=== PATIENT | male | born 1990 | race Caucasian/White ===

== ENCOUNTER 2020-07-27 10:58 | Outpatient (CLI) | payer OTHER, SELFPAY ==
[2020-07-27 11:12] LABS: Hematocrit 38.5 % (40.0-54.0); Hemoglobin 13.2 g/dL (14.0-18.0); Mean Corpuscular HGB Conc 34.3 g/dL (32.0-36.0); Mean Corpuscular Hemoglobin 30.7 pg (27.0-31.0); Mean Corpuscular Volume 89.5 fL (78.0-102.0); Mean Platelet Volume 9.2 fl (8.7-11.0); Platelet Count Result 153 K/mm3 (150-420); White Blood Count 4.2 K/mm3 (4.8-10.8)
[2020-07-27 11:29] LABS: Alanine Aminotransferase 16 U/L (16-63); Alkaline Phosphatase 79 U/L (46-116); Anion Gap 11 mmol/L (8-16); Aspartate Amino Transferase 11 U/L (15-37); Bilirubin,Total 0.7 mg/dL (0.00-1.00); Blood Urea Nitrogen 17 mg/dL (7-18); Calcium 8.9 mg/dL (8.5-10.1); Carbon Dioxide 27 mmol/L (21-32); Chloride 102 mmol/L (98-108); Estimated Glomerular Filt Rate > 60; Glucose 102 mg/dL (70-99); Osmolality Calculated 291 mOsm/kg (285-295); Potassium 3.5 mmol/L (3.5-5.1); Sodium 140 mmol/L (136-145); Total Protein 7.7 g/dL (6.4-8.2)
[2020-07-27 11:32] LABS: Lactic Acid 0.5 mmol/L (0.4-2.0)
[2020-07-27 12:01] LABS: Band Neutrophils Percent 0 % (0-6); Lymphocytes Absolute Manual 0.71 K/mm3 (1.1-4.5); Lymphocytes Percent Manual 17 % (18-44); Monocytes Absolute Manual 0.84 K/mm3 (0.1-0.90); Monocytes Percent Manual 20 % (3-9); Neutrophils Absolute Manual 2.64 K/mm3 (1.3-6.7); Neutrophils Percent Manual 63 % (46-73); Platelet Estimate Adequate (Adequate); Total Cells Counted 100
[2020-07-29 09:36] LABS: Ferritin 114 ng/mL (26-388); Iron 79 ug/dL (65-175); Percent Iron Saturation 28 % (12-57)
== END 2020-07-27 10:59 | disposition home or self-care (01) ==
LOC: CHSLAB 11:04
PROVIDERS: PCP Internal Medicine; Visit Provider Internal Medicine
DX: R78.81 Bacteremia (principal); D64.9 Anemia, unspecified
CPT/HCPCS: 36415; 80053; 82728; 83540; 83550; 83605; 85025

== ENCOUNTER 2020-12-28 08:47 | Outpatient (CLI) | payer OTHER, SELFPAY ==
--- NOTE | ~2020-12-28 | US_ITS ---
EXAMINATION: US soft tissue head and neck DATE: 12/28/2020 09:06 INDICATION: Left-sided cervical lymph node enlargement. TECHNIQUE: Multiple grayscale and Doppler ultrasound images of the neck were obtained. COMPARISON: None FINDINGS: There are enlarged internal jugular chain lymph nodes in the patient's area of concern in l eft neck. The largest and measures 1.8 x 1.7 x 1.3 cm. IMPRESSION: 1. Enlarged left internal jugular chain lymph nodes, which may be reactive or less likely malignant. Neck CT with contrast is recommended if there is no clinical improvement. Reviewed, dictated and finalized at location A. IMPRESSION: 1. Enlarged left internal jugular chain lymph nodes, which may be reactive or l ess likely malignant. Neck CT with contrast is recommended if there is no clini chandan improvement.
== END 2020-12-28 08:48 | disposition home or self-care (01) ==
LOC: CHSIMG 08:47
PROVIDERS: PCP Internal Medicine; Visit Provider Internal Medicine
DX: R59.9 Enlarged lymph nodes, unspecified (principal)
CPT/HCPCS: 76536

== ENCOUNTER 2020-12-30 08:06 | Outpatient (CLI) | payer OTHER, SELFPAY ==
--- NOTE | ~2020-12-30 | CT_ITS ---
EXAMINATION: CT soft tissue neck w con DATE: 12/30/2020 08:33 INDICATION: Left-sided cervical lymph node enlargement. TECHNIQUE: Computed tomography (CT) of the neck was performed with 75 mL Omnipaque-350 intravenous co ntrast. Automated exposure control and iterative reconstruction technique were employed. The dose-hamilton gth product was 417.54 mGy-cm. COMPARISON: Ultrasound 12/28/2020 FINDINGS: There is an 8.5 x 3.7 cm mass in the anterior mediastinum that is contiguous with left supr aclavicular lymphadenopathy. A left supraclavicular node measures 2.2 x 1.3 cm. There is a skin marke r overlying this node. The cervical carotid arteries are normal. There is mild cervical spondylosis. Cervicothoracic dextroscoliosis is noted. IMPRESSION: 1. Anterior mediastinal mass and left supraclavicular lymphadenopathy, most likely lymphoma. Ultrasou nd-guided core needle biopsy of a left subclavicular lymph node is recommended. I called this result to Dr. Hodges. Reviewed, dictated and finalized at location A. IMPRESSION: 1. Anterior mediastinal mass and left supraclavicular lymphadenopathy, most lik arely lymphoma. Ultrasound-guided core needle biopsy of a left subclavicular lymp h node is recommended. I called this result to Dr. Hodges.
== END 2020-12-30 08:07 | disposition home or self-care (01) ==
LOC: CHSIMG 08:07
PROVIDERS: PCP Internal Medicine; Visit Provider Internal Medicine
DX: R59.0 Localized enlarged lymph nodes (principal)
CPT/HCPCS: 70491; Q9967

== ENCOUNTER 2023-01-20 05:09 | Inpatient (IN) | payer OTHER, SELFPAY ==
[2023-01-20] VITALS (91 sets, daily range): BP systolic 94–134; BP diastolic 59–92; PULSE 67–121; RESP 16–18; TEMP 36.6–37.3; O2SAT 94–100; BMI 32.7
[2023-01-20] MEDS: LACTATED RINGERS 1,000 ML 125 ML IV CONT (05:54)
[2023-01-20] MEDS: AMPICILLIN 2 GM/NS 100 ML 2 GM/100 ML BAG IVPB (05:55)
[2023-01-20 06:06] LABS: Basophils Percent Auto 0.4 % (0.2-1.2); Eosinophils Absolute Auto 0.1 K/mm3 (0-0.3); Eosinophils Percent Auto 0.8 % (0-4.4); Hematocrit 37.9 % (37.0-47.0); Hemoglobin 11.9 g/dL (12.0-15.0); Immature Granulocyte Absolute 0.06 K/mm3 (0.00-0.031); Immature Granulocyte Percent A 0.6 % (0-0.5); Lymphocytes Absolute Auto 1.15 K/mm3 (0.9-3.2); Mean Corpuscular HGB Conc 31.4 g/dl (32-36); Mean Corpuscular Volume 89.2 fl (80-100); Mean Platelet Volume 11.3 fl (7.4-10.4); Monocytes Absolute Auto 0.6 K/mm3 (0.1-0.6); Monocytes Percent Auto 5.7 % (2.6-8.5); Neutrophils Absolute Auto 8.5 K/mm3 (1.3-6.7); Neutrophils Percent Auto 81.5 % (45.5-73.1); Platelet Count Result 200 k/mm3 (150-375); Red Blood Count 4.25 M/mm3 (4.2-5.4); Red Cell Distribution Width 14.1 % (11.5-14.5); White Blood Count 10.4 K/mm3 (4.5-10.0)
--- NOTE | 2023-01-20 06:13 | LDADM ---
This patient, Nicci Ibarra, was admitted to Labor/Delivery/Recovery 106 on 01/20/23 at 05:09. Plans for labor, pain management and were discussed with patient. Patient/family oriented to hospital policies and general routines including ID bracelet, bed and alarms, visiting hours, pain management, procedures, bathroom and other care routines, personal items, smoking policy, room service/diet and guest tray routines, infant security routines, and visiting hours. Patient/Family are encouraged to report perceived risks to care and to ask questions if they do not understand what they are told or what they should do. See OBIX for further documentation.
[2023-01-20] MEDS: OXYTOCIN 30 UNITS/NS 500 ML 30 UNITS/500 ML BAG 6 UNITS IV CONT (06:52)
--- NOTE | 2023-01-20 09:13 | PM.IMHP ---
H&P: HPI History of Present Illness Date/Time: 01/20/23 09:13 Chief Complaint: Induction of labor Narrative: Nicci is a 32yo @ 40.2wks who presents for induction of labor. She has had regular care. She reports good movement. No VB or LOF. Her is complicated by: - SMA 1 copy; FOB 2 copies - h/o stage 3 Hodgkin's lymphoma - GBS positive Review of Systems Constitutional: Constitutional: Denies chills, Denies fever(s) and Denies headache(s) Eyes: Eyes: Denies change in vision ENT: Denies headache(s) Cardiovascular: Cardiovascular: Denies chest pain and Denies dyspnea Respiratory: Respiratory: Denies dyspnea Genitourinary: Genitourinary: Denies abnormal vaginal bleeding and Denies vaginal discharge Neurologic: Denies headache(s) Psychiatric: Psychiatric: Denies anxiety and Denies depression PMFSH Past Medical History Medical History Lymphoma hodgkins; stage 3, s/p chemo Suppression of menses Surgical History Surgical History H/O gynecological procedure egg retrieval [place] teeth removed Family History Family History Grandparent Heart disease Hypertension Father Hypertension Social History Social History Smoking status: Never smoker Alcohol intake: never Substance use: never Substance use type: does not use Lack of Transportation: No Lack of Food: Never True Current Housing: I Have Housing Concerned About Future Housing: No Difficulty Paying Gas/Electric Bills: No Difficulty Paying for Meds: No Currently Unemployed: No Education: Master's Degree or Higher Difficulty w/ Childcare or Family Care: No Living arrangements: with family Occupation/Education: occupation 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 [employer] Gender identity (if verbalized by the patient): Female Sexual Orientation (if Verbalized by the Patient): Straight or Heterosexual Spiritual care concerns: No Meds Home Medications and Allergies Home Medications Medication Instructions Recorded Confirmed Type ferrous sulfate 325 mg (65 mg 325 mg PO DAILY 12/21/22 01/20/23 History iron) tablet prenat.vits,chandan,vok-pbba-ffhxl 1 tablet PO DAILY 12/21/22 01/20/23 History Allergies Allergy/AdvReac Type Severity Reaction Status Date / Time No Known Allergies Allergy Verified 01/20/23 06:22 Vital Signs Vital Signs - 24 hr 01/20/23 05:34 01/20/23 05:46 01/20/23 06:01 Temperature Pulse Rate 96 89 98 Blood Pressure 134/92 H 122/81 114/80 Oxygen Delivery 01/20/23 06:16 01/20/23 06:31 01/20/23 06:46 Temperature Pulse Rate 89 89 92 Blood Pressure 116/82 120/81 109/82 Oxygen Delivery 01/20/23 06:45 01/20/23 07:01 01/20/23 07:16 Temperature 98 F Pulse Rate 85 86 Blood Pressure 109/74 112/77 Oxygen Delivery 01/20/23 07:31 01/20/23 07:46 01/20/23 08:01 Temperature Pulse Rate 89 90 Blood Pressure 100/76 105/78 108/81 Oxygen Delivery 01/20/23 08:16 01/20/23 08:31 01/20/23 09:01 Temperature Pulse Rate 76 74 95 Blood Pressure 114/81 114/70 119/83 Oxygen Delivery 01/20/23 06:13 Temperature Pulse Rate Blood Pressure Oxygen Delivery Room Air Exam Const: General: cooperative, comfortable, no acute distress and obese Nutritional Appearance: obese Orientation/consciousness: patient oriented x3 Resp: Effort & Inspection: normal respiratory effort Cardio: Rate: regular rate GI: GI Palp: No abdominal tenderness : Other: FHT's: 150's/ mod claire/ + accels/ no decels - cat 1 TOCO: ctxs q3min Cervix: 5/80/-1 Membranes: AROM, clear 0955 Presentation: cephalic Skin: General skin exam: normal color Neuro: General: patient oriented x3 Extrem: G
[2023-01-20] MEDS: AMPICILLIN 1 GM/NS 50 ML 1 GM/50 ML BAG IVPB (09:40)
--- NOTE | 2023-01-20 09:58 | WPDHPUPDATE1 ---
History and Physical Update Update Date/Time: 01/20/23 09:58 History and Physical has been reviewed, including an updated exam of the patient. There are NO changes in the patient's condition. Risks, benefits, and alternatives have been discussed and questions answered. Patient agrees to proceed with procedure.
[2023-01-20] MEDS: ONDANSETRON INJ 4 MG/2 ML VIAL IV PUSH (10:43)
--- NOTE | 2023-01-20 11:06 | WPDANESEPP ---
Anes - Eval Pre Procedure Procedure: labor epidural Date/Time: 01/20/23 11:06 Surgeon: santiago Preop Diagnosis: Pain during labor Pre Op Diagnosis: Induction of Labor Patient Data Age: 32 Gender: F Height: 1.68 m Weight: 92 kg Last Vital Signs Temp 36.6 C 01/20/23 10:40 Pulse 83 01/20/23 11:01 BP 115/72 01/20/23 11:01 Pulse Ox 99 01/20/23 11:03 O2 Del Method Room Air 01/20/23 06:13 Allergies Allergy/AdvReac Type Severity Reaction Status Date / Time No Known Allergies Allergy Verified 01/20/23 06:22 Home Medications Medication Instructions Recorded Confirmed Type ferrous sulfate 325 mg (65 mg 325 mg PO DAILY 12/21/22 01/20/23 History iron) tablet prenat.vits,cahndan,nob-xzvc-droep 1 tablet PO DAILY 12/21/22 01/20/23 History Laboratory Tests 01/20/23 05:42 WBC 10.4 H K/mm3 (4.5-10.0) RBC 4.25 M/mm3 (4.2-5.4) Hgb 11.9 L g/dL (12.0-15.0) Hct 37.9 % (37.0-47.0) MCV 89.2 fl (80-100) MCH 28.0 pg (26-34) MCHC 31.4 L g/dl (32-36) RDW 14.1 % (11.5-14.5) Plt Count 200 k/mm3 (150-375) MPV 11.3 H fl (7.4-10.4) Immature Gran % (Auto) 0.6 H % (0-0.5) Neut % (Auto) 81.5 H % (45.5-73.1) Lymph % (Auto) 11.0 L % (18.3-44.2) [place] % (Auto) 5.7 % (2.6-8.5) Eos % (Auto) 0.8 % (0-4.4) Baso % (Auto) 0.4 % (0.2-1.2) Lymph # (Auto) 1.15 K/mm3 (0.9-3.2) [place] # (Auto) 0.6 K/mm3 (0.1-0.6) Eos # (Auto) 0.1 K/mm3 (0-0.3) Baso # (Auto) 0.0 K/mm3 (0.0-0.1) Abs Immat Gran (auto) 0.06 H K/mm3 (0.00-0.031) Absolute Neuts (auto) 8.5 H K/mm3 (1.3-6.7) Absolute Nucleated RBC 0.0 K/mm3 (0.0-0.012) Nucleated RBC % 0.0 % (0.0-0.2) RPR Pending Blood Type B Positive Antibody Screen Negative Patient hx anesthesia problems: none Family hx anesthesia problems: none Results Review: All pre-operative results and documents have been reviewed as part of the pre-operative evaluation. [facility] Past Medical History Medical History Lymphoma hodgkins; stage 3, s/p chemo Suppression of menses Surgical History Surgical History H/O gynecological procedure egg retrieval [place] teeth removed Family History Family History Grandparent Heart disease Hypertension Father Hypertension Social History Social History Smoking status: Never smoker Alcohol intake: never Substance use: never Substance use type: does not use Lack of Transportation: No Lack of Food: Never True Current Housing: I Have Housing Concerned About Future Housing: No Difficulty Paying Gas/Electric Bills: No Difficulty Paying for Meds: No Currently Unemployed: No Education: Master's Degree or Higher Difficulty w/ Childcare or Family Care: No Living arrangements: with family Occupation/Education: occupation 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
[2023-01-20] MEDS: OXYTOCIN 30 UNITS/NS 500 ML 30 UNITS/500 ML BAG 125 UNITS IV CONT (14:30)
--- NOTE | 2023-01-20 14:30 | PM.OBPRVD ---
OB - Vaginal Delivery Note Procedure Delivery date: 01/20/23 Events: Elective Induction of Labor and Positive Group B Strep (GBS) Induction method: Per Pitocin Protocol Delivery augmentation: Rupture of Membranes Delivery monitor: External FHT and External Uterine Route of delivery: Laceration Description: Perineal - 3rd Degree and Labial (right) Delivery repair: vicryl Specimen: No Quantitative Blood Loss (ml): 700 Anesthesia type: Epidural Disposition: Floor Complications: No immediate complications Baby Date of : 01/20/23 Time of : 13:49 Weeks of gestation at delivery: 40 (.2) Infant gender: Female Weight (pounds): 9 Weight (ounces): 10 presentation: vertex Placenta delivery description: Expressed Cord Vessel Description: 3 Vessels and Delayed Cord Clamping score one minute: 8 score five minutes: 9 Narrative: Nicci progressed to complete dilation. She pushed for approximately 10 minutes with good maternal effort. She delivered the head over intact perineum. No nuchal cord was palpated. She easily delivered the 's shoulders and body without complication. Meconium stained fluid as well as terminal meconium was noted. The was immediately placed skin to skin and had spontaneous cry. Delayed cord clamping was performed. The umbilical cord was then doubly clamped and cut. A segment of the cord was collected for cord gases. The remaining cord blood was collected for typing. With Pitocin running and gentle downward traction on the cord, the placenta delivered without complications. Brisk bleeding was noted from the right labial laceration as well as the partial third-degree perineal laceration. The labial laceration was repaired to the normal, interlocking fashion using 2-0 Vicryl and good hemostasis was noted. A briskly bleeding blood vessel near the perineal laceration was then suture ligated using 2-0 Vicryl in a mvlkxs-gx-kvmhq manner and good hemostasis was noted. The rectal sphincter was reinforced using multiple 2-0 Vicryl stitches and good reapproximation was noted on rectal exam. The remaining portion of the perineal laceration was repaired in the normal fashion using 2-0 Vicryl. Bimanual massage was performed and good uterine tone with minimal bleeding was noted. Sponge, lap, instrument, and needle counts were correct at the end of the procedure. An additional rectal exam was performed and palpated normal. Mom and baby were left bonding in the birthing suite in stable condition. [facility] Delivery Billing Delivery Delivery: Delivery Charge
[2023-01-20] MEDS: ceFAZolin 2 GM/D5W 50 ML 2 GM/50 ML BAG IVPB (14:46)
--- NOTE | 2023-01-20 16:29 | OBPPTRN ---
0247-Patient transferred to post room #282 via wheelchair. Support person present. Oriented to unit, room, information board, rooming in, admission packet and security measures. Patient verbalizes understanding.
[2023-01-20] MEDS: IBUPROFEN 600 MG TABLET PO (19:10)
[2023-01-20] MEDS: DOCUSATE SODIUM 100 MG CAPSULE PO (21:05)
[2023-01-20] MEDS: ACETAMINOPHEN 325 MG TABLET 650 MG PO (21:05)
[2023-01-21] MEDS: IBUPROFEN 600 MG TABLET PO ×3 (03:08→15:21)
[2023-01-21] MEDS: ACETAMINOPHEN 325 MG TABLET 650 MG PO ×2 (03:08→16:38)
[2023-01-21 04:53] LABS: Hematocrit 28.8 % (37.0-47.0); Hemoglobin 9.1 g/dL (12.0-15.0)
--- NOTE | 2023-01-21 07:32 | PM.OBPNVD ---
OB - PN: Subj Subjective Date/time seen: 01/21/23 07:32 Narrative: PPD#1 Nicci reports doing well today. 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 Her pain is controlled with PO pain meds. She is tolerating regular diet, voiding, passing gas, and ambulating without issues. She is breast feeding. OB - PN: Obj Data Labs 01/21/23 04:22 Labs: Laboratory Results - last 24 hr 01/21/23 04:22 Hgb 9.1 L Hct 28.8 L OB - PN A/P Assessment and Plan (1) Normal vaginal delivery of first : Code(s): O80 - Encounter for full-term uncomplicated delivery Status: Acute (2) Third degree perineal laceration during delivery: Qualifiers: Third degree perineal laceration subtype: type 3a Qualified Code(s): O70.21 - Third degree perineal laceration during delivery, IIIa Code(s): O70.20 - Third degree perineal laceration during delivery, unspecified Status: Acute Plan day: 1 Plan: routine care Comments: - continue colace, miralax, s/p ancef 2g once - continue PO pain meds - ambulation/hydration - continue Time Spent With Patient Time: Total time spent is greater than 50% in coordination of care (as documented) at patient's floor/unit and/or counseling patient: Review of Systems Constitutional: Constitutional: Denies chills, Denies fever(s) and Denies headache(s) Eyes: Eyes: Denies change in vision ENT: Denies dizziness and Denies headache(s) Cardiovascular: Cardiovascular: Denies chest pain, Denies palpitations and Denies dyspnea Respiratory: Respiratory: Denies cough and Denies dyspnea Gastrointestinal: Gastrointestinal: Denies nausea and Denies vomiting Neurologic: Denies dizziness and Denies headache(s) Endocrine: Endocrine: Denies palpitations Exam Const: General: cooperative, comfortable and no acute distress Orientation/consciousness: patient oriented x3 Resp: Effort & Inspection: normal respiratory effort Auscultation: clear to auscultation bilaterally Cardio: Rate: regular rate GI: Inspection: non-distended GI Palp: No abdominal tenderness and Yes Soft to palpation Auscultation: normal bowel sounds : Other: fundus firm Skin: General skin exam: normal color Neuro: General: patient oriented x3 Extrem: General: normal to inspection Psych: Appearance: grossly normal Affect: normal affect Attitude: cooperative
--- NOTE | 2023-01-21 07:40 | WPDANLDPN2 ---
Anes-Prog Note L&D Date/Time: 01/21/23 07:40 Comfortable throughout: labor and delivery Neuraxial method: epidural Epidural/Spinal procedure site: clean & non-tender Neuro status: Neuro function grossly intact. Cardiovascular status: normal Respiratory status: normal Airway patency: baseline Mental status: baseline Post-Op hydration status: normal Vital Signs: Last Vital Signs Temp 36.7 C 01/20/23 22:45 Pulse 85 01/20/23 22:45 Resp 18 01/20/23 22:45 BP 121/86 01/20/23 22:45 Pulse Ox 99 01/20/23 22:45 O2 Del Method Room Air 01/20/23 22:45 Pain score (VAS): 2/10 I/O: Intake & Output 01/20/23 01/20/23 01/21/23 15:59 23:59 07:59 Intake Total 500 Output Total 700 21 Balance -700 479 Post-procedural complaints: none Patient feedback: Patient satisfied with anesthetic care.
[2023-01-21 07:45] VITALS: BP 110/76; PULSE 79; RESP 18; TEMP 36.8; O2SAT 99
[2023-01-21] MEDS: polyethylene glycoL 3350 17 GM POWD.PACK PO (09:11)
[2023-01-21] MEDS: MULTIVIT/MIN/PREN/FOL AC/IRON TABLET 1 TAB PO (09:11)
[2023-01-21] MEDS: DOCUSATE SODIUM 100 MG CAPSULE PO ×2 (09:11→15:22)
[2023-01-21] MEDS: POLYSACCHARIDE IRON COMPLEX 150 MG CAPSULE PO ×2 (09:11→15:22)
[2023-01-21 12:03] VITALS: BP 99/67; PULSE 75; RESP 16; TEMP 37.4; O2SAT 98
--- NOTE | 2023-01-21 13:20 | PC.NURSE ---
[id number] Introductions were made, then consulted with patient to assess needs related to . Mother led the conversation with her?plans to feed?her infant, the?experience so far and injuries to bilateral nipples were made visible and discussed from earlier sessions. Mother works well with her with encouragement, education and we reviewed the wonderful output that demonstrates may be going better than mother thinks. Encouraged understanding of the benefits of skin to skin (demonstrating unwrapping infant and placing upright on her chest), stimulating with massage touch, changing positions to encourage wakefulness, how to watch for early feeding cues, responsive feeding, feeding on demand (aiming for 8-12 times in 24 hours, about every 2-3 hours), milk production, building/maintaining a milk supply, duration of feeding, signs of adequate intake/output and how to record on the feeding sheet. Reviewed positioning and ear, shoulder, hip alignment, supporting the breast to facilitate a deep latch, asymmetrical latch (off-center), leading with the chin with a big, open, wide gape and body close to mother. latched optimally to the right breast in football position. Education given to mother of how to visualize suck/swallow ratios and listen for drinking at the breast which infant demonstrates well. was able to maintain latch without discomfort to mother. Nipple care reviewed with optimal latch and good positioning. Reminding mother of comfort measures of healing with a warm and wet washcloth to rinse breast, then leave open to air-dry as needed. Reviewed good handwashing when or touching the breast/nipples to prevent infection. Resources used to facilitate learning were used with the visual handouts, tool, mom and baby guide. Mother voiced understanding of skin to skin, stimulating with massage touch, responsive feedings, talking to to encourage if it has been 2 -2.5 hours since the start of the last , feeding on demand, to call if does not latch, or if there is discomfort with . Resources provided for inpatient/outpatient with feeding sheet, name written on the communication board and the mom/baby guide. Parents voiced understanding of information, demonstrated learning and will call if there is a request for assistance. Reported to the Primary RN.
[2023-01-21 13:35] LABS: Rapid Plasma Reagin Non-Reactive (NonReactive)
[2023-01-21 19:36] VITALS: BP 101/69; PULSE 81; RESP 18; TEMP 36.4; O2SAT 99
--- NOTE | 2023-01-22 07:18 | PM.OBDSVD ---
DS: Admitting Diagnosis Discharge Date 01/22/23 Admitting Diagnosis Induction of labor DS: Discharge Diagnosis Discharge Diagnosis (1) Normal vaginal delivery of first : Code(s): O80 - Encounter for full-term uncomplicated delivery Status: Acute (2) Third degree perineal laceration during delivery: Qualifiers: Third degree perineal laceration subtype: type 3a Qualified Code(s): O70.21 - Third degree perineal laceration during delivery, IIIa Code(s): O70.20 - Third degree perineal laceration during delivery, unspecified Status: Acute OB - DS: Summary OB Procedures : Ultrasound OB Procedures Intrapartum: Spontaneous Vag Delivery OB Procedures: : Antibiotics Peripartum Data Infant Delivery Method: Natural Vaginal Laceration Description: Perineal - 3rd Degree and Labial (right) complications: none 1: Gender: Female Disposition of : home Status at Discharge Functional status at discharge: independent ambulation Overall status at discharge: patient is back to baseline Time Spent with Patient Time attestation: Total time spent providing and/or coordinating discharge services: Time spent: Less than 30 minutes Exam Const: General: cooperative, comfortable and no acute distress Orientation/consciousness: patient oriented x3 Resp: Effort & Inspection: normal respiratory effort Auscultation: clear to auscultation bilaterally Cardio: Rate: regular rate GI: Inspection: non-distended GI Palp: No abdominal tenderness and Yes Soft to palpation Auscultation: normal bowel sounds : Other: fundus firm Skin: General skin exam: normal color Neuro: General: patient oriented x3 Extrem: General: normal to inspection Psych: Appearance: grossly normal Affect: normal affect Attitude: cooperative DS: Data Data Completed and Pending Labs on day of discharge: Labs from last 24 hours 01/20/23 05:42 RPR Non-reactive Discharge Plan Discharge Attending physician on discharge: Evelyn Gottlieb Discharging Clinician: Evelyn Gottlieb Anticipated Discharge Date/Time: 01/22/23 08:00 Patient Disposition: Home, Self-Care Activity: may shower and pelvic rest Diet: regular Patient Instructions: Antibiotic Form Stand Alone Forms: General Discharge Information Follow-up/Referrals: Evelyn Gottlieb MD [Physician] - 4 Weeks Discharge Medications: New docusate sodium 100 mg Capsule 100 mg PO BID PRN (Reason: Constipation) Qty: 120 1RF polyethylene glycol 3350 [Miralax] 17 gram Powder In Packet 17 g PO QAM Qty: 30 1RF ibuprofen 600 mg Tablet 600 mg PO Q6H PRN (Reason: Cramping) Qty: 40 0RF acetaminophen 500 mg tablet 1,000 mg PO Q6H Qty: 80 0RF Continued ferrous sulfate 325 mg (65 mg iron) Tablet 325 mg PO DAILY #2 Tablet 1 tablet PO DAILY Date of admission: 01/20/23 05:09 Primary Care Provider: Esperanza Hodges Admitting Provider: Evelyn Gottlieb Attending physician on admission: Evelyn Gottlieb Condition: Stable
[2023-01-22 07:55] VITALS: BP 123/78; PULSE 83; RESP 16; TEMP 37.5; O2SAT 100
[2023-01-22] MEDS: POLYSACCHARIDE IRON COMPLEX 150 MG CAPSULE PO (07:56)
[2023-01-22] MEDS: DOCUSATE SODIUM 100 MG CAPSULE PO (07:56)
[2023-01-22] MEDS: MULTIVIT/MIN/PREN/FOL AC/IRON TABLET 1 TAB PO (07:56)
[2023-01-22] MEDS: IBUPROFEN 600 MG TABLET PO (07:56)
[2023-01-22] MEDS: polyethylene glycoL 3350 17 GM POWD.PACK PO (07:57)
--- NOTE | 2023-01-22 08:00 | PC.NURSE ---
Patient viewed the discharge video Mother & Baby Care, The First Two Weeks online. Patient was given the opportunity and encouraged to ask questions. Patient verbalized understanding of information shared and has been given the mother/baby guide for home reference.
[2023-01-23 10:27] VITALS: BP 114/82; PULSE 90; RESP 18; TEMP 36.6; O2SAT 100
== END 2023-01-22 11:40 | disposition home or self-care (01) | DRG 768 ==
LOC: ANHLDR 05:16 → ANHOB2 17:21
PROVIDERS: Admitting Provider Obstetrics & Gynecology; PCP Internal Medicine; Visit Provider Obstetrics & Gynecology
DX: O99.824 Streptococcus B carrier state complicating childbirth (principal); Z37.0 Single live birth; O70.20 Third degree perineal laceration during delivery, unspecified; Z3A.40 40 weeks gestation of pregnancy
CPT/HCPCS: 36415; 85014; 85018; 85025; 86592; 86850; 86900; 86901; A9270; J0290; J0690; J2405; J2590; J2795; J7120